=== PATIENT | female | born 1955 | race Caucasian/White ===

== ENCOUNTER 2018-02-22 17:38 | Emergency (ER) | payer SELFPAY ==
[~2018-02-22] VITALS: Ht 167.6 cm; Wt 117.9 kg
[~2018-02-22 17:38] MED LIST: ALPRAZOLAM0.5 M4; AUGMENTIN 875 M1 TAB PO; BACTRIM DS 8001 TAB PO; DOXYCYLINE50 MG PO; DULOXETINE HCL30 MG; KEFLEX500 MG PO; LISINOPRIL20 M1 PO; LISINOPRIL20 MG PO; MOTRIN800 MG PO; NYSTATIN100000 U/2 TOP; PERCOCET 325 MG1 TA2 PO; PROAIR HFA8.5 GM INH; VIBRAMYCIN 100100 MG PO; VICODIN5-300 PO
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
[2018-02-22 18:48] LABS: ABSOLUTE BASOPHIL COUNT 0 /CUMM (0.0-0.2); ABSOLUTE EOSINOPHIL COUNT 0 /CUMM (0.0-0.7); ABSOLUTE GRANULOCYTE CT 5.5 /CUMM (1.4-6.5); ABSOLUTE LYMPH COUNT 1.3 /CUMM (1.2-3.4); ABSOLUTE MONOCYTE COUNT 0.1 /CUMM (0.10-0.60); BASOPHIL % 0.4 % (0.0-2.0); EOSINOPHIL % 0.5 % (0-5); GRANULOCYTE % 78.7 % (42.2-75.2); MEAN CORPUSCULAR HGB 29.8 PG (27.0-31.0); MEAN CORPUSCULAR HGB CONC 32.8 G/DL (33.0-37.0); MEAN CORPUSCULAR VOLUME 90.9 FL (81.0-99.0); MEAN PLATELET VOLUME 8.3 FL (7.4-10.4); PLATELET COUNT 241 /CUMM (130-400); RBC DISTRIBUTION WIDTH 13.8 % (11.5-14.5); RED BLOOD CELL CT 4.51 /CUMM (4.20-5.40); WHITE BLOOD CELL COUNT 6.9 /CUMM (4.8-10.8)
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
[2018-02-23 01:18] VITALS: BP 139/80
== END 2018-02-23 01:22 ==
LOC: ERH 17:38
PROVIDERS: Physician Assistant
DX: F10.129 Alcohol abuse with intoxication, unspecified (principal); F13.229 Sedative, hypnotic or anxiolytic dependence with intoxication, unspecified
CPT/HCPCS: 80307; G0480